=== PATIENT | male | born 1955 | race Caucasian/White ===

== ENCOUNTER 2023-12-01 09:54 | Outpatient (RCR) | payer MEDICARE, BC, SELFPAY | END 2023-12-01 23:59 | disposition home or self-care (01) | LOC: CRHB 09:54 | PROVIDERS: ATTENDING PHYSICIAN Internal Medicine Interventional Cardiology; PRIMARYCARE PHYSICIAN Internal Medicine | DX: I25.10 Atherosclerotic heart disease of native coronary artery without angina pectoris (principal); Z95.5 Presence of coronary angioplasty implant and graft | CPT/HCPCS: G0422; G0423 ==

== ENCOUNTER 2023-12-08 10:31 | Emergency (ER) | payer MEDICARE, BC, SELFPAY ==
[2023-12-08 10:41] VITALS: BP 201/103
[2023-12-08 11:40] VITALS: BP 202/93
[2023-12-08 11:43] VITALS: BMI 28.7
[2023-12-08 12:00] VITALS: BP 165/84
[2023-12-08 13:00] VITALS: BP 181/87
[2023-12-08 13:56] VITALS: BP 180/95
[2023-12-08 14:00] VITALS: BP 177/85
--- NOTE | 2023-12-08 14:02 | ED.GENMED ---
History of Present Illness
General
Chief Complaint: Blood Pressure Problem
Source: patient
Exam Limitations: none
Time Seen by Provider: 12/08/23 11:59
Nursing documentation reviewed up to this point in time: agreed with
Travel History
Have you had any contact with someone who has COVID-19?: No
Do you have any symptoms of coronavirus? Fever > 100 degrees, chills, cough, shortness of breath, sore throat, loss of taste or smell, muscle aches, or headache?: No
History of Present Illness
History of Present Illness:
Patient status post recent cardiac stent placement, presents to ED from cardiac rehab center secondary to persistently elevated blood pressure. Patient scheduled rehab was not able to be initiated due to blood pressure. Staff at rehab spoke with
patient's computer patternmaker who recommended patient come to ED for an evaluation and treatment. Upon arrival, patient is found to be hypertensive, but has no complaints. Denies headache. Denies chest pain or shortness of breath. Denies dizziness.
Denies blurred vision. Denies nausea or vomiting. Patient states that usually when he is at his family physician's office, his blood pressure is around 120 or 130 systolic, but has found his blood pressure to be in the 140s and 150s when he is at
his computer patternmaker office. He is currently on valsartan 160 mg daily, but does not recall if he is taking the medication in the morning or at night.
Review of Systems
Review of Systems
Allergies reviewed?: Yes
All Other Systems: ROS reviewed and negative except as documented in HPI and ROS
Constitutional: Reports no symptoms
EENT: Reports no symptoms
Respiratory: Reports no symptoms; Denies trouble breathing
Cardiac: Reports no symptoms; Denies chest pain
ABD/GI: Reports no symptoms; Denies abdominal pain, nausea or vomiting
Musculoskeletal: Reports no symptoms
Skin: Reports no symptoms
Neurological: Denies dizzy, headache or weakness
Phy Exam
Physical Exam
Physical Exam:
Physical Exam
General: no apparent distress, not acutely ill. afebrile. hypertensive.
Head: nc/at. eomi
Neck: supple. no meningeal signs.
Heart: s1/s2 regular rate and rhythm, no murmur. equal radial pulses.
Lungs: no acute respiratory distress. clear bilaterally
Abdomen: normal bowel sounds. not tender.
Neuro: alert and oriented. no focal neurological deficits
Skin: no rash
Psychiatric: well kept. interactive and cooperative
Extremities: no edema. no calf tenderness.
Course
Orders/Labs/Results
Orders:
Orders
12/08/23 10:33
EKG [Electrocardiogram (*1)] Urgent
Reason for Study: Tachycardia
EKG- Treatment ONCE
12/08/23 14:05
Valsartan [Diovan] 80 mg PO NOW STA
Vital Signs
Initial and Last Documented VS:
Initial Vital Signs
Temp Pulse Resp BP Pulse Ox
97.8 F 61 22 201/103 98
12/08/23 10:41 12/08/23 10:41 12/08/23 10:41 12/08/23 10:41 12/08/23 10:41
Last Documented Vital Signs
Temp Pulse Resp BP Pulse Ox
97.8 F 61 22 180/85 99
12/08/23 10:41 12/08/23 10:41 12/08/23 10:41 12/08/23 14:21 12/08/23 14:15
MDM/Problems Addressed
MDM/Problems Addressed:
Pt remains asymptomatic in ED with BP ranging between 160s-180s. Discussed with patient's cardiologists, . Agrees with plan to discharge home. Recommends increasing valsartan to BID. Cardiology office will make an arrangement for continual
cardiac rehab as outpatient. Pt given 80 mg valsartan prior to discharge.
*Critical Care Note
Total Time (30-74mins, 75-104mins- exclusive of procedures): Not Applicable
ED Attending Note
-
Portions of this chart may have been created with voice recognition software.� Occasional wrong word or��sound alike� substitutions may have occurred due to the inherent limitations of voice recognition software.
Discharge Plan
Departure
Patient Disposition: Home (Routine Discharge)
Date of Disposition: 12/08/23
Time of Disposition: 14:28
Patient with high blood pressure during this ER visit?: Yes
Condition: Good
Discharge Problem:
Hypertension
Instructions: High Blood Pressure (DC)
Referrals:
Andrea Hannah MD [Family Provider] -
Activity Restrictions/Additional Instructions:
As discussed, please follow up with your computer patternmaker for further evaluation and treatment.
Interventions
Interventions:
*Risk Screen - Suicide Last Done: 12/08/23 12:33
*General Assessment Last Done: 12/08/23 12:33
*Neglect/Abuse Screening Last Done: 12/08/23 12:33
*ED COVID-19 Vaccine History Last Done: 12/08/23 10:52
*Nursing Disposition Last Done: 12/08/23 14:32
ED- Cardiac Assessment Last Done: 12/08/23 11:43
ED- Neurological Assessment Last Done: 12/08/23 11:43
ED- Pulmonary Assessment Last Done: 12/08/23 11:43
Discharge Date and Time
Discharge Date/Time: 12/08/23 14:37
[2023-12-08] MEDS: DIOVAN 80 MG PO (14:21)
== END 2023-12-08 14:37 | disposition home or self-care (01) ==
LOC: EMR 10:31
PROVIDERS: EMERGENCY PHYSICIAN Emergency Medicine; FAMILY PHYSICIAN Internal Medicine
DX: I10 Essential (primary) hypertension (principal); Z79.899 Other long term (current) drug therapy; Z95.5 Presence of coronary angioplasty implant and graft
CPT/HCPCS: 99283; 93005

== ENCOUNTER 2023-12-08 10:34 | Outpatient (RCR) | payer MEDICARE, BC, SELFPAY | END 2023-12-08 23:59 | disposition home or self-care (01) | LOC: CRHB 10:34 | PROVIDERS: ATTENDING PHYSICIAN Internal Medicine Interventional Cardiology; FAMILY PHYSICIAN Internal Medicine | DX: Z95.5 Presence of coronary angioplasty implant and graft (principal); I25.10 Atherosclerotic heart disease of native coronary artery without angina pectoris | CPT/HCPCS: G0422; G0423 ==